=== PATIENT | male | born 1995 | race Caucasian/White ===

== ENCOUNTER 2020-06-09 10:55 | Emergency (ER) | payer SELFPAY ==
[2020-06-09 11:18] VITALS: BP 121/74; PULSE 92; RESP 16; TEMP 36.9; O2SAT 97; BMI 21.7
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
[2020-06-09 12:56] VITALS: BP 134/73; PULSE 104; RESP 16; O2SAT 95
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
[2020-06-09 14:28] VITALS: BP 107/66; PULSE 80; RESP 16; TEMP 36.3
[2020-06-09 14:29] VITALS: BP 107/66; PULSE 80; RESP 16; TEMP 36.3
== END 2020-06-09 14:28 | disposition home or self-care (01) ==
PROVIDERS: Emergency Provider Nurse Practitioner Family
DX: S80.01XA Contusion of right knee, initial encounter (principal); W19.XXXA Unspecified fall, initial encounter
CPT/HCPCS: 12345; 73562; 99281; 99283; E0114

== ENCOUNTER 2020-07-07 16:04 | Emergency (ER) | payer SELFPAY ==
[2020-07-07 17:09] VITALS: BP 129/62; PULSE 105; RESP 16; TEMP 36.9; O2SAT 97; BMI 20.3
[2020-07-07 17:44] VITALS: RESP 18
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
[2020-07-07 18:02] VITALS: RESP 18
== END 2020-07-07 18:03 | disposition home or self-care (01) ==
PROVIDERS: Emergency Provider Nurse Practitioner Family
DX: F41.8 Other specified anxiety disorders (principal); F17.210 Nicotine dependence, cigarettes, uncomplicated
CPT/HCPCS: 12345; 99281